=== PATIENT | male | born 1995 | race Two or more races ===

== ENCOUNTER 2019-08-08 23:23 | Emergency (ER) | payer OTHER ==
[~2019-08-08] VITALS: Ht 170.2 cm; Wt 71.2 kg
[2019-08-09] MEDS ORDERED: SULFAMETH/TRIMETH 800/160 MG 1 UDTAB TABLET PO ONE
[2019-08-09] MEDS ORDERED: SULFAMETH/TRIMETH 800/160 MG 1 UDTAB TABLET ONE (00:12)
[2019-08-09] MEDS ORDERED: CEPHALEXIN MONOHYDRATE 500 MG CAPSULE PO ONE ×2 (00:12)
--- NOTE | 2019-08-09 00:17 | NUR ---
Patient discharged to [facility] in stable condition. Written and verbal after care instructions given. Patient verbalizes understanding of instruction.Medically cleared for booking
[2019-08-09 00:18] VITALS: BP 137/79
== END 2019-08-09 00:18 | disposition home or self-care (01) ==
LOC: ER 23:24
DX: S62.501A Fracture of unspecified phalanx of right thumb, initial encounter for closed fracture (principal); L03.113 Cellulitis of right upper limb; J45.909 Unspecified asthma, uncomplicated; X58.XXXA Exposure to other specified factors, initial encounter; Y93.89 Activity, other specified; Y92.89 Other specified places as the place of occurrence of the external cause; Y99.8 Other external cause status